=== PATIENT | male | born 1980 | race Caucasian/White ===

== ENCOUNTER → 2017-01-30 | Outpatient (CLI) | payer BC ==
--- NOTE | 2017-01-30 17:27 | PCVCIMAG ---
APPROVED REPORT Study performed: 01/30/2017 15:38:34 EXAM: Comprehensive 2D, Doppler, and color-flow Echocardiogram Status: routine BSA: 2.47 HR: 87 bpmBP: 110/90 mmHg Rhythm: NSR Other Information Study Quality: Adequate Indications Hypertension/HDD 2D Dimensions IVSd: 10.92 (7-11mm) LVDd: 42.02 mm PWd: 11.34 (7-11mm)Ascending Ao: 34.30 (22-36mm) LVDs: 35.08 (25-40mm) Left Atrium: 29.61 (27-40mm) Aortic Root: 26.58 mm LV Single Plane 4CH: 50.64 % LV Single Plane 2CH: 66.43 %Allred's LVEF: 58.53 % Volumes Left Atrial Volume (Systole) Single Plane 4CH: 31.15 mLSingle Plane 2CH: 34.68 mL LA ESV Index: 13.00 mL/m2 Aortic Valve AoV Peak Alfredo.: 1.15 m/s AO Peak Gr.: 5.25 mmHgLVOT Max P.14 mmHg LVOT Max V: 1.13 m/s Mitral Valve E/A Ratio: 1.0 MV Decel. Time: 128.89 ms MV E Max Alfredo.: 0.67 m/s MV A Alfredo.: 0.65 m/s IVRT: 106.11 ms TDI E/Lateral E': 5.15E/Medial E': 6.70 Medial E' Alfredo.: 0.10 m/s Lateral E' Alfredo.: 0.13 m/s Pulmonary Valve PV Peak Gr.: 2.68 mmHg Pulmonary Vein P Vein S: 0.64 m/sP Vein A: 0.34 m/s P Vein D: 0.41 m/sP Vein A Dur.: 64.6 msec P Vein S/D Ratio: 1.56 Left Ventricle The left ventricle is normal size. There is normal LV segmental wall motion. There is normal left ventricular wall thickness. Left ventricular systolic function is normal. The left ventricular ejection fraction is within the normal range. LVEF is 65%. The left ventricular diastolic function is normal. Right Ventricle The right ventricle is normal size. The right ventricular systolic function is normal. Atria The left atrium size is normal. The right atrium size is normal. Aortic Valve The aortic valve is normal in structure. No aortic regurgitation is present. There is no aortic valvular stenosis. Mitral Valve The mitral valve is normal in structure. There is no mitral valve regurgitation noted. No evidence of mitral valve stenosis. Tricuspid Valve The tricuspid valve is normal in structure. There is no tricuspid valve regurgitation noted. Pulmonic Valve The pulmonary valve is normal in structure. There is no pulmonic valvular regurgitation. Great Vessels The aortic root is normal in size. IVC is normal in size and collapses with >50% inspiration Pericardium There is no pericardial effusion. <Conclusion> The left ventricle is normal size. LVEF is 65%. The left ventricular diastolic function is normal. The right ventricle is normal size. The left atrium size is normal. The aortic valve is normal in structure. There is no mitral valve regurgitation noted. There is no tricuspid valve regurgitation noted. There is no pericardial effusion.
--- NOTE | 2017-01-30 17:44 | PCVCIMAG ---
APPROVED REPORT Patient Location: Echo lab Room #: Stress Nurse: Tanya Molina RN Conclusion The Patient exercised according to the Chris Protocol for 12:39 mins., achieving a work level of Max. Mets 15.60. The Resting heart rate of 96bpm alvarez to a maximal heart rate of 181 bpm. This value represents 99% of the maximal, age-predicted heart rate. The resting blood pressure of 110/90mmhg, alvarez to a maximum blood pressure of 176/80 mmhg. The exercise test was stoppped due to fatigue. #1 no production of chest pain or angina. #2 no diagnostic EKG changes #3 no significant ectopy or dysrhythmias were noted #4. Exercise tolerance was an appropriate hemodynamic response Impression negative treadmill stress test for ischemia.
== END | disposition home or self-care (01) ==
LOC: PCVCIMAG 15:31
PROVIDERS: ATTEND Internal Medicine Cardiovascular Disease
DX: R94.31 Abnormal electrocardiogram [ECG] [EKG] (principal); I45.10 Unspecified right bundle-branch block; I10 Essential (primary) hypertension; E78.5 Hyperlipidemia, unspecified; E78.00 Pure hypercholesterolemia, unspecified
CPT/HCPCS: 80061; 93017; 93306

== ENCOUNTER → 2019-04-09 | Outpatient (CLI) | payer BC ==
--- NOTE | 2019-04-09 16:53 | PCVCIMAG ---
APPROVED REPORT Study performed: 04/09/2019 14:47:37 Exam: Stress Echocardiogram Indication: abn ekg, incomplete RBBB, fam hx cad Stress Nurse: Rose Marie Cazares RN Status: routine Ht: 6 ft 2 in HR: 106 bpm BP: 140/94 mmHg Rhythm: Tachycardia Procedure The patient underwent an Exercise Stress Test using the Chris Protocol. Blood pressure, heart rate, and EKG were monitored. An Echocardiogram was performed by ase certified technician in four stages in quad fashion. At peak stress, four selected images were obtained and placed side by side with resting images for comparison. Stress Test Details Stress Test: Exercise stress testing was performed using a Chris protocol. HR Resting HR: 106 bpmMax Heart Rate (APMHR): 180 bpm Max HR Achieved: 162 bpmTarget HR (85% APMHR): 153 bpm % of APMHR: 90 Recovery HR: 125 bpm HR response to stress: Normal HR response to stress BP Resting BP: 140/94 mmHg Max BP: 168/84 mmHg Recovery BP: 146/86 mmHg BP response to stress: Normal blood pressure response to stress. ECG Resting ECG: Sinus Tachycardia w/ non specific ST abnormality Stress ECG: Sinus Rhythm ST Change: Normal Arrhythmia: None Recovery ECG: Sinus Rhythm, incomplete RBBB Recovery ST Change: Normal Recovery Arrhythmia: None Clinical Reason for Termination: Maximal effort Stress Symptoms: Dyspnea Exercise duration: 11 min 1 sec Highest Stage Achieved: Stage 4: 4.2 mph at 16% grade. Exercise capacity: 13.7 METs Overall Exercise Capacity for Age: Good Scale: Sedentary Angina Score: None Pre-Stress Echo The resting Echocardiogram showed normal left ventricular contractility with an estimated Ejection Fraction of about 50-55%. Post-Stress Echo The stress Echocardiogram showed normal left ventricular contractility with an estimated Ejection Fraction of about 60-65%. Clinical No clinical or ECG evidence for ischemia. Conclusion Clinical Response: Non-ischemic Exercise Capacity: Average Stress ECG Response: Non-ischemic Stress Echo Images: Non-ischemic The left ventricle is normal in size and wall thickness in both the rest and stress images. Normal color doppler. No regurgitation or stenosis present on pulmonic, mitral, tricuspid and aortic valves. Other Information Study Quality: Adequate <Conclusion> The left ventricle is normal in size and wall thickness in both the rest and stress images. Normal color doppler. No regurgitation or stenosis present on pulmonic, mitral, tricuspid and aortic valves.
== END | disposition home or self-care (01) ==
LOC: PCVCIMAG 15:09
PROVIDERS: ATTEND Internal Medicine Cardiovascular Disease
DX: I45.10 Unspecified right bundle-branch block (principal); R94.31 Abnormal electrocardiogram [ECG] [EKG]; R07.9 Chest pain, unspecified; R06.02 Shortness of breath; I10 Essential (primary) hypertension; I44.5 Left posterior fascicular block; E78.00 Pure hypercholesterolemia, unspecified; Z88.8 Allergy status to other drugs, medicaments and biological substances; Z82.49 Family history of ischemic heart disease and other diseases of the circulatory system; Z72.89 Other problems related to lifestyle
CPT/HCPCS: 93325; 93351